=== PATIENT | female | born 1960 | race Caucasian/White ===

== ENCOUNTER 2023-09-11 08:32 | Day surgery (SDC) | payer OTHER ==
[~2023-09-11] VITALS: Ht 177.8 cm; Wt 83.9 kg
[2023-09-11 09:10] VITALS: O2SAT 99
[2023-09-11] MEDS ORDERED: MEPERIDINE 100 MG INJ. 100 MG/ML VIAL ONE (09:52)
[2023-09-11] MEDS: MIDAZOLAM HCL 5 MG/5 ML VIAL ONE ×3 (10:10→10:19)
[2023-09-11 15:35] VITALS: BP_SYST 90; PULSE 69; RESP 14
== END 2023-09-11 12:10 | disposition home or self-care (01) ==
LOC: SDS 08:32 → SMU 08:35 → SDS 12:10
PROVIDERS: ATTEND Internal Medicine
DX: Z12.11 Encounter for screening for malignant neoplasm of colon (principal); K57.30 Diverticulosis of large intestine without perforation or abscess without bleeding; K64.8 Other hemorrhoids; Z80.0 Family history of malignant neoplasm of digestive organs; J45.909 Unspecified asthma, uncomplicated; E11.9 Type 2 diabetes mellitus without complications; Z88.5 Allergy status to narcotic agent; Z79.84 Long term (current) use of oral hypoglycemic drugs; Z79.899 Other long term (current) drug therapy
CPT/HCPCS: 45378; 99152; 82962; 99153; G0378; J2250; J2175